=== PATIENT | female | born 2000 | race Two or more races ===

== ENCOUNTER 2018-05-13 12:29 | Inpatient (IN) | payer OTHER, BC ==
[~2018-05-13] VITALS: Ht 165.1 cm; Wt 63.2 kg
[2018-05-13 12:44] VITALS: BP 114/65
[2018-05-13] MEDS ORDERED: TERBUTALINE 1 MG/ML, 1ML ONE (13:13)
[2018-05-13] MEDS ORDERED: TERBUTALINE 1 MG/ML, 1ML SQ ONE (13:30)
[2018-05-13 14:23] LABS: MICROSCOPIC INDICATED
[2018-05-13 14:32] LABS: CLUE CELLS PRESENT (NONE SEEN); WET PREP WBCS MODERATE (FEW)
[2018-05-13] MEDS ORDERED: MAGNESIUM SULF. PMX 20GM/500ML 500 ML IV ONE ×2 (14:50→23:02)
[2018-05-13 14:57] LABS: BASOPHILS # (AUTO) 0.04 x10^3/uL (0-0.3); BASOPHILS % (AUTO) 0 % (0-1); EOSINOPHILS % (AUTO) 0 % (1-7); LYMPHOCYTES # (AUTO) 1.35 x10^3/uL (1-6.1); LYMPHOCYTES % (AUTO) 8 % (22-44); MD NO; MEAN CORPUSCULAR HEMOGLOBIN 30.6 pg (27.0-34.8); MEAN CORPUSCULAR HGB CONC 33.3 g/dL (32.4-35.8); MEAN CORPUSCULAR VOLUME 91.8 fL (80-100); MEAN PLATELET VOLUME 7.8 fL (7.4-10.4); MONOCYTES # (AUTO) 0.87 x10^3/uL (0-1.4); MONOCYTES % (AUTO) 5 % (2-9); NEUTROPHILS # (AUTO) 15.49 x10^3/uL (1.8-8.0); NEUTROPHILS % (AUTO) 87 % (42-75); PLATELET COUNT 217 x10^3/uL (130-400); RED BLOOD COUNT 4.43 x10^6/uL (3.82-5.3); RED CELL DISTRIBUTION WIDTH 13.3 % (9.6-15.2)
[2018-05-13] MEDS: LACTATED RINGERS 1,000 ML IV SCH (14:58)
[2018-05-13] MEDS ORDERED: MAGNESIUM SULFATE PMX 4GM/100M 100 ML IVPB ONE (15:00)
[2018-05-13] MEDS: BETAMETHASONE 6 MG/ML, 5ML IM SCH (15:00)
[2018-05-13] MEDS ORDERED: CALCIUM GLUCONATE 4.6 MEQ/10 ML IV PRN (15:00)
[2018-05-13 15:07] LABS: ALANINE AMINOTRANSFERASE 13 U/L (12-78); ANION GAP 10 mmol/L (5-15); CALCIUM 8.6 mg/dL (8.5-10.1); CHLORIDE 108 mmol/L (98-107); CREATININE 0.59 mg/dL (0.55-1.02)
[2018-05-13 15:09] LABS: ALKALINE PHOSPHATASE 93 U/L (45-117); BILIRUBIN,TOTAL 0.6 mg/dL (0.2-1.0); TOTAL PROTEIN 7.2 g/dL (6.4-8.2)
[2018-05-13] MEDS ORDERED: CLINDAMYCIN PMX 900MG/50ML 50 ML ONE ×2 (15:20→23:03)
[2018-05-13] MEDS ORDERED: BETAMETHASONE 6 MG/ML, 5ML IM ONE (15:22)
[2018-05-13] MEDS: MAGNESIUM SULF. PMX 20GM/500ML 500 ML IV SCH ×2 (15:31→23:14)
[2018-05-13] MEDS: CLINDAMYCIN PMX 900MG/50ML 50 ML IV SCH ×2 (15:33→23:04)
[2018-05-13] MEDS ORDERED: ONDANSETRON 2MG/ML, 2ML IVPush PRN (17:00)
[2018-05-13] MEDS ORDERED: DOCUSATE 100 MG CAPSULE PO PRN (17:00)
[2018-05-13] MEDS ORDERED: ACETAMINOPHEN 325 MG TABLET PO PRN ×2 (17:00)
[2018-05-13 18:26] LABS: MICROSCOPIC AUTO
[2018-05-13 18:27] LABS: CULTURE INDICATED? NO
[2018-05-13] MEDS: metroNIDAZOLE 500 MG TABLET PO SCH (19:56)
[2018-05-14 07:00] VITALS: BP 92/54
[2018-05-14] MEDS: CLINDAMYCIN PMX 900MG/50ML 50 ML IV SCH ×3 (07:00→22:58)
[2018-05-14] MEDS ORDERED: CLINDAMYCIN PMX 900MG/50ML 50 ML ONE ×3 (07:01→22:57)
[2018-05-14] MEDS ORDERED: MAGNESIUM SULF. PMX 20GM/500ML 500 ML IV ONE ×2 (09:20→19:23)
[2018-05-14] MEDS ORDERED: DOCUSATE 100 MG CAPSULE ONE (09:20)
[2018-05-14] MEDS: metroNIDAZOLE 500 MG TABLET PO SCH ×2 (09:22→21:06)
[2018-05-14] MEDS ORDERED: PRENATAL VIT/IRON/FA 1 EACH TABLET ONE (09:22)
[2018-05-14] MEDS: PRENATAL VIT/IRON/FA 1 EACH TABLET PO SCH (09:23)
[2018-05-14] MEDS: MAGNESIUM SULF. PMX 20GM/500ML 500 ML IV SCH ×2 (09:25→19:31)
[2018-05-14] MEDS: LACTATED RINGERS 1,000 ML IV SCH (15:10)
[2018-05-14] MEDS: BETAMETHASONE 6 MG/ML, 5ML IM SCH (15:11)
[2018-05-15] MEDS ORDERED: MAGNESIUM SULF. PMX 20GM/500ML 500 ML IV ONE (04:45)
[2018-05-15] MEDS: LACTATED RINGERS 1,000 ML IV SCH (04:47)
[2018-05-15] MEDS: MAGNESIUM SULF. PMX 20GM/500ML 500 ML IV SCH (04:50)
[2018-05-15] MEDS ORDERED: CLINDAMYCIN PMX 900MG/50ML 50 ML ONE (06:40)
[2018-05-15] MEDS: CLINDAMYCIN PMX 900MG/50ML 50 ML IV SCH ×3 (06:43→23:00)
[2018-05-15] MEDS ORDERED: PRENATAL VIT/IRON/FA 1 EACH TABLET ONE (20:20)
[2018-05-15] MEDS: PRENATAL VIT/IRON/FA 1 EACH TABLET PO SCH (20:21)
[2018-05-15] MEDS: metroNIDAZOLE 500 MG TABLET PO SCH ×2 (21:00→21:08)
[2018-05-16] MEDS: LACTATED RINGERS 1,000 ML IV SCH ×6 (03:00→23:00)
[2018-05-16] MEDS ORDERED: NEWBORN KIT ONE (05:41)
[2018-05-16] MEDS ORDERED: OXYTOCIN 30U/ 0.9% NaCL 500ML 500 ML ONE (05:41)
[2018-05-16] MEDS ORDERED: D5%-LACTATED RINGERS 1,000 ML IV SCH (07:24)
[2018-05-16] MEDS ORDERED: LACTATED RINGERS 1,000 ML IV SCH ×2 (07:24→09:01)
[2018-05-16] MEDS ORDERED: FENTANYL PF 100 MCG/2ML IVPush PRN (07:30)
[2018-05-16] MEDS ORDERED: FENTANYL PF 100 MCG/2ML IV PRN (07:30)
[2018-05-16] MEDS ORDERED: FENTANYL/BUPIV./NS/PF 250 ML EPIDCONT SCH ×2 (07:40→09:01)
[2018-05-16] MEDS ORDERED: MISOPROSTOL 200 MCG TABLET ONE (07:57)
[2018-05-16] MEDS ORDERED: LIDOCAINE 1%, 20ML ONE (07:57)
[2018-05-16] MEDS ORDERED: FENTANYL/BUPIV./NS/PF 250 ML EPIDCONT ONE (08:02)
[2018-05-16] MEDS ORDERED: BUPIVACAINE 0.25% ONE (08:02)
[2018-05-16] MEDS: metroNIDAZOLE 500 MG TABLET PO SCH ×2 (08:59→21:33)
[2018-05-16] MEDS ORDERED: LACTATED RINGERS 1,000 ML IVBOLUS PRN (09:30)
[2018-05-16] MEDS ORDERED: FENTANYL PF 500 MCG, BUPIVACAINE/PF 0.5%, 30ML 62.5 ML in SODIUM CHLORIDE 0.9% 177.5 ML EPIDCONT SCH (09:30)
[2018-05-16] MEDS ORDERED: DIPHENHYDRAMINE 50 MG/ML, 1ML IVPush PRN (09:30)
[2018-05-16] MEDS ORDERED: EPHEDRINE 50 MG/ML, 1ML IVPush PRN (09:30)
[2018-05-16] MEDS ORDERED: NALOXONE 0.4 MG/ML, 1ML IVPush PRN (09:30)
[2018-05-16] MEDS ORDERED: ONDANSETRON 2MG/ML, 2ML IVPush PRN (09:30)
[2018-05-16] MEDS: OXYTOCIN 30U/ 0.9% NaCL 500ML 500 ML IV SCH ×2 (11:18→16:40)
[2018-05-16] MEDS ORDERED: OXYcodone/APAP 5/325MG TABLET PO PRN (11:30)
[2018-05-16] MEDS ORDERED: OXYcodone IR 5MG TABLET PO PRN (11:30)
[2018-05-16] MEDS ORDERED: ACETAMINOPHEN 325 MG TABLET PO PRN (11:30)
[2018-05-16] MEDS ORDERED: ONDANSETRON 2MG/ML, 2ML IV PRN (11:30)
[2018-05-16] MEDS ORDERED: MISOPROSTOL 200 MCG TABLET PR PRN (11:30)
[2018-05-16 13:45] VITALS: BP 106/66
[2018-05-16 15:38] VITALS: BP 97/60
[2018-05-16] MEDS: IBUPROFEN 600 MG TABLET PO PRN (16:20)
[2018-05-16 19:31] LABS: MD YES; MEAN CORPUSCULAR HEMOGLOBIN 31.3 pg (27.0-34.8); MEAN CORPUSCULAR HGB CONC 33.8 g/dL (32.4-35.8); MEAN CORPUSCULAR VOLUME 92.6 fL (80-100); MEAN PLATELET VOLUME 7.9 fL (7.4-10.4); PLATELET COUNT 231 x10^3/uL (130-400); RED BLOOD COUNT 3.99 x10^6/uL (3.82-5.3); RED CELL DISTRIBUTION WIDTH 13.3 % (9.6-15.2)
[2018-05-16 19:33] LABS: <PLATELET ESTIMATE> ADEQUATE; <PLT MORPHOLOGY> NORMAL PLT MORPH; <RBC MORPHOLOGY> NORMAL; BANDS%(MANUAL) 9 % (0-7); LYMPH#(MANUAL) 1.54 x10^3/uL (1-6.1); LYMPHS% (MANUAL) 6 % (22-44); MONOS#(MANUAL) 1.28 x10^3/uL (0.3-2.7); MONOS% (MANUAL) 5 % (2-9); SEG#(MANUAL) 20.48 x10^3/uL (1.8-8); SEGS% (MANUAL) 80 % (42-75)
[2018-05-16 20:15] VITALS: BP 102/66
[2018-05-17] MEDS: IBUPROFEN 600 MG TABLET PO PRN ×3 (00:54→21:03)
[2018-05-17 01:00] VITALS: BP 101/64
[2018-05-17 04:00] VITALS: BP 105/62
[2018-05-17] MEDS: OXYTOCIN 30U/ 0.9% NaCL 500ML 500 ML IV SCH ×2 (07:27→17:27)
[2018-05-17] MEDS: LACTATED RINGERS 1,000 ML IV SCH ×2 (08:54→19:00)
[2018-05-17] MEDS: PRENATAL VIT/IRON/FA 1 EACH TABLET PO SCH (09:05)
[2018-05-17] MEDS: DOCUSATE 100 MG CAPSULE PO PRN ×2 (09:05→21:03)
[2018-05-17] MEDS: metroNIDAZOLE 500 MG TABLET PO SCH ×2 (09:05→21:03)
[2018-05-17 09:15] VITALS: BP 96/61
[2018-05-17 19:45] VITALS: BP 101/64
[2018-05-18] MEDS: OXYTOCIN 30U/ 0.9% NaCL 500ML 500 ML IV SCH (03:27)
[2018-05-18] MEDS: LACTATED RINGERS 1,000 ML IV SCH (05:00)
[2018-05-18 07:50] VITALS: BP 103/65
[2018-05-18] MEDS: IBUPROFEN 600 MG TABLET PO PRN ×2 (08:13→18:37)
[2018-05-18] MEDS: metroNIDAZOLE 500 MG TABLET PO SCH ×2 (08:14→18:37)
[2018-05-18] MEDS: DOCUSATE 100 MG CAPSULE PO PRN (08:14)
[2018-05-18] MEDS: PRENATAL VIT/IRON/FA 1 EACH TABLET PO SCH (08:14)
[2018-05-18] MEDS ORDERED: IBUP-1222 PO (13:01)
== END 2018-05-18 18:45 | disposition home or self-care (01) | DRG 805 ==
LOC: LDOP 12:29 → LDIP 14:41 → 2NW 05-16 13:09
PROVIDERS: ADMIT Student in an Organized Health Care Education/Training Program; ATTEND Student in an Organized Health Care Education/Training Program
PROC: 0T9B70Z Drainage of Bladder with Drainage Device, Via Natural or Artificial Opening (ICD-10-PCS; 2018-05-13)
PROC: 10E0XZZ Delivery of Products of Conception, External Approach (ICD-10-PCS; principal; 2018-05-16)
PROC: 3E0R3BZ Introduction of Anesthetic Agent into Spinal Canal, Percutaneous Approach (ICD-10-PCS; 2018-05-16)
PROC: 00HU33Z Insertion of Infusion Device into Spinal Canal, Percutaneous Approach (ICD-10-PCS; 2018-05-16)
DX: O60.14X0 Preterm labor third trimester with preterm delivery third trimester, not applicable or unspecified (principal); O75.3 Other infection during labor; Z37.0 Single live birth; O69.81X0 Labor and delivery complicated by cord around neck, without compression, not applicable or unspecified; Z3A.33 33 weeks gestation of pregnancy; Z88.0 Allergy status to penicillin
CPT/HCPCS: 36415; 76805; 76815; 80053; 81001; 83735; 84112; 85025; 86850; 86900; 87081; 87210; 87808; G0378; J0702; J2590; J3010; J3105; J3475; J7120

== ENCOUNTER 2020-09-04 17:54 | Emergency (ER) | payer BC, OTHER ==
[~2020-09-04] VITALS: Ht 165.1 cm; Wt 65.3 kg
[~2020-09-04 17:54] MED LIST: IBUP-1222 PO
[2020-09-04 18:03] VITALS: BP 112/65
== END 2020-09-04 20:22 | disposition home or self-care (01) ==
LOC: ED 20:15
DX: Z04.1 Encounter for examination and observation following transport accident (principal); Z88.0 Allergy status to penicillin; V49.59XA Passenger injured in collision with other motor vehicles in traffic accident, initial encounter; Y93.89 Activity, other specified; Y92.410 Unspecified street and highway as the place of occurrence of the external cause; Y99.8 Other external cause status
CPT/HCPCS: 99281